=== PATIENT | male | born 1990 | race African-American/Black ===

== ENCOUNTER 2022-10-11 20:53 | Emergency (ER) | payer OTHER ==
[~2022-10-11] VITALS: Ht 177.8 cm; Wt 90.7 kg
[2022-10-11 21:10] VITALS: BP_SYST 136; PULSE 98; RESP 19; TEMP 97.5; O2SAT 96
== END 2022-10-11 21:34 ==
LOC: SED 20:53
DX: Z02.89 Encounter for other administrative examinations (principal); J45.909 Unspecified asthma, uncomplicated; Z79.899 Other long term (current) drug therapy
CPT/HCPCS: 99283